=== PATIENT | male | born 1950 | race Caucasian/White ===

== ENCOUNTER → 2018-02-04 08:57 | Outpatient (CLI) | payer MEDICARE, OTHER, SELFPAY ==
--- NOTE | 2018-02-04 | DI.ECHO.S_ITS ---
[facility]---------+ [facility] +---------+ : : [address] : : : : [id number] : : : : Phone: [phone]---------+ Echocardiogram Report + + :Name: KENDY ORTIZ Study Date: 02/04/2018 Height: 73 in : :[facility] Exam Location: [facility] Weight: 208 lb : : Gender: Male BSA: 2.2 m2 : :: 1950 Age: 67 yrs BP: 155/80 mmHg: :Reason For Study: Aortic valve stenosis : :Ordering Physician: Kate Ramos : :Nita Performed By: Roseanna Page : + + Interpretation Summary 1) Normal left ventricular thickness, size, wall motion, and systolic function (EF 60-65%). 2) Normal right ventricular size and function. 3) Moderate to severe aortic stenosis (valve area 0.9cm2, mean gradient 30mmHg, severity ratio 0.25). 4) Compared to the echo done 08/05/2017, aortic stenosis remains in the moderate to severe range. Procedure: A two-dimensional transthoracic echocardiogram with color flow and Doppler was performed. The study quality was technically adequate. Comparison is made with the echocardiogram of 08/05/17. The patient was in normal sinus rhythm during the exam. The patient had occasional PVCs during the exam. Left Ventricle: The left ventricle is normal in size, wall thickness, and systolic function without any focal wall motion abnormalities. Proximal septal thickening is noted. The ejection fraction is estimated to be 60-65%. Assessment of diastolic parameters indicates a relaxation abnormality of the left ventricle, consistent with normal filling pressures. Right Ventricle: The right ventricle is normal in size and function. Atria: Both atria are normal in size. There is no Doppler evidence for an interatrial shunt. Mitral Valve: The mitral valve leaflets appear thickened, but open well. There is mild mitral annular calcification. There is trace mitral regurgitation. Aortic Valve: The aortic valve is moderately calcified. The peak aortic velocity is 3.7 m/sec. The peak aortic velocity on the previous exam was 3.7 m/sec. The aortic valve mean gradient is 30.2 mmHg. The calculated aortic valve area is 0.90 cm2. There is moderate to severe aortic stenosis. Compared to the prior echo study, there has been no change in the severity of aortic stenosis. There is mild aortic regurgitation. Tricuspid Valve: The tricuspid valve is normal in structure and function. There is a trace or physiologic amount of tricuspid regurgitation. Pulmonary artery pressures cannot be estimated because of the lack of a measurable TR jet velocity. Pulmonic Valve: The pulmonic valve is not well visualized. There is a trace or physiologic amount of pulmonic regurgitation. Great Vessels: The aortic root is normal size. The ascending aorta is mildly enlarged. The pulmonary artery is not well visualized, but is probably normal size. The IVC is of normal diameter and collapses greater than 50% with a sniff. This suggests a low right atrial pressure of 3 mm Hg. Pericardium/ Pleura There is no pericardial effusion. There is no pleural effusion. MMode/2D Measurements & Calculations LVIDd: 4.1 cm LVOT diam: 2.1 cm LVIDs: 3.1 cm Ao root diam: 3.8 cm FS: 24.0 % asc Aorta Diam: 3.6 cm EPSS: 0.64 cm IVSd: 0.94 cm LVPWd: 0.92 cm LV villalba. diameter/BSA (cm/m^2): 1.9 LV sys. diameter/BSA (cm/m^2): 1.4 LA A2 area: 19.7 cm2 RA long axis: 5.2 cm LA A4 area: 21.0 cm2 RA area: 16.0 cm2 LA length (vol): 6.1 cm RA vol: 41.7 ml LA vol: 57.6 ml RA : 19.1 ml/m2 LA vol index: 26.3 ml/m2 RVD1 (basal): 3.7 cm Doppler Measurements & Calculations Ao V2 max: 371.4 cm/sec LVOT Max Ran: 91.0 cm/sec Ao V2 mean: 259.3 cm/sec LV V1 max P.3 mmHg Ao max P.2 mmHg LV V1 VTI: 19.6 cm Ao mean P.2 mmHg DANIELA(I,D): 0.90 cm2 Ao V2 VTI: 77.7 cm DANIELA(V,D): 0.88 cm2 sev ratio: 0.25 DANIELA indexed to BSA (cm^2/m^2): 0.41 MV E max ran: 63.1 cm/sec PA V2 max: 72.3 cm/sec MV A max ran: 87.1 cm/sec PA V2 mean: 50.3 cm/sec MV E/A: 0.72 PA mean P.1 mmHg Med Peak E' Ran: 3.1 cm/sec PA Accel Time: 0.14 sec E/E' med: 20.4 Lat Peak E' Ran: 7.8 cm/sec E/E' lat: 8.0 E/e' average: 14.2 MV dec time: 0.23 sec MV P1/2t: 66.9 msec MV P1/2t max ran: 63.2 cm/sec MVA(P1/2t): 3.3 cm2 Reading Physician:11:16 AM
== END ==
PROVIDERS: Family Provider Internal Medicine; PCP Internal Medicine; Visit Provider Internal Medicine Cardiovascular Disease
DX: I35.0 Nonrheumatic aortic (valve) stenosis (principal)
CPT/HCPCS: 93306

== ENCOUNTER → 2018-02-19 09:00 | Outpatient (CLI) | payer MEDICARE, OTHER, SELFPAY ==
--- NOTE | 2018-02-19 | DI.US.S_ITS ---
PROCEDURE: US RETROPERITONEAL COMP INDICATIONS: ABDOMINAL AORTIC ANEURYSM TECHNIQUE: Real-time scanning was performed of the retroperitoneal organs, with image documentation. COMPARISON: None. FINDINGS: Aorta: Distal abdominal aortic aneurysm is present measuring up to 4.1 cm in maximal AP diameter. The iliac arteries are normal caliber. Iliac arteries: Proximal common iliac arteries are normal in caliber at 2.5 cm or less. IMPRESSION: 4.1 cm distal abdominal aortic aneurysm. Dictated by: Jarrod Marie [facility] Interpreted: Hedy Neri MD on 02/19/2018 at 10:01 Approved by: Hedy Neri MD, PhD on 02/19/2018 at 12:09
== END ==
PROVIDERS: Family Provider Internal Medicine; PCP Internal Medicine; Visit Provider Internal Medicine Cardiovascular Disease
DX: I71.4 Abdominal aortic aneurysm, without rupture (principal)
CPT/HCPCS: 76770

== ENCOUNTER → 2019-01-26 15:18 | Outpatient (CLI) | payer MEDICARE, OTHER, SELFPAY ==
[2019-01-26 16:05] LABS: BUN Creatinine Ratio 15.5 (6-22); Blood Urea Nitrogen 17 mg/dL (9-20); Estimated Glomerular Filt Rate > 60.0 mL/min (>60)
== END ==
PROVIDERS: PCP Internal Medicine; Visit Provider Surgery
DX: K40.90 Unilateral inguinal hernia, without obstruction or gangrene, not specified as recurrent (principal)
CPT/HCPCS: 36415; 82565; 84520

== ENCOUNTER → 2019-01-29 10:48 | Outpatient (CLI) | payer MEDICARE, OTHER, SELFPAY ==
--- NOTE | 2019-01-29 10:51 | DI.CT.S_ITS ---
PROCEDURE: CT ABDOMEN PELVIS W CON INDICATIONS: recurrent right inguinal hernia TECHNIQUE: After the administration of oral and intravenous contrast, 5 mm thick sections acquired from the diaphragms to the symphysis. 5 mm thick coronal and sagittal reformats were performed. For radiation dose reduction, the following was used: automated exposure control, adjustment of mA and/or kV according to patient size. COMPARISON: [facility], , US ABD AORTA ANEURYSM SCREEN, 01/20/2019, 14:14. FINDINGS: Image quality: Excellent. ABDOMEN: Lung bases: Lung bases are clear. Heart size is normal. Coronary artery calcifications. Solid organs: Liver is normal in size and enhancement. Gallbladder is unremarkable. Biliary system is non-dilated. Pancreas enhances normally. Spleen is normal in size and enhancement. No adrenal nodules. Kidneys are normal in size and enhancement, without hydronephrosis. Peritoneum and bowel: Stomach, small bowel, and colon loops are normal in caliber and wall thickness. No free fluid or air. Extensive sigmoid diverticulosis without evidence of diverticulitis. Nodes and vessels: No retroperitoneal or mesenteric adenopathy. There is an infrarenal abdominal aortic aneurysm which measures approximately 5.1 cm in maximum diameter. It is not possible to take an accurate transverse diameter measurement secondary to tortuosity. This would be an overestimation. There is moderate to large thrombus. There is a wide neck between the lowest renal artery and the aneurysm through the aneurysm and its at the aortic bifurcation. This aneurysm has excellent anatomical appearance for potential endovascular repair. The SMA, celiac, bilateral renal arteries, and DELPHINE are patent. The common iliacs and internal iliacs and common femorals are widely patent Miscellaneous: No ventral hernias. PELVIS: Genitourinary: Bladder wall thickness is normal. Miscellaneous: No inguinal hernias or adenopathy. No evidence of recurrent inguinal hernia. Bones: No suspicious bony lesions. No vertebral body compression fractures. IMPRESSION: 1. Infrarenal abdominal aortic aneurysm measuring 5.1 cm. This is of surgical size. The aneurysm has suitable anatomy for endovascular repair. Recommend referral to a vascular surgeon who performs endovenous aortic aneurysm treatment. 2. No evidence of recurrent inguinal hernia. 3. Extensive sigmoid diverticulosis without evidence of diverticulitis. Dictated by: Anup Weiss M.D. on 01/29/2019 at 16:24 Approved by: Anup Weiss M.D. on 01/29/2019 at 16:30
== END ==
PROVIDERS: PCP Internal Medicine; Visit Provider Surgery
DX: K40.91 Unilateral inguinal hernia, without obstruction or gangrene, recurrent (principal); I71.4 Abdominal aortic aneurysm, without rupture; K57.30 Diverticulosis of large intestine without perforation or abscess without bleeding
CPT/HCPCS: 74177; Q9967

== ENCOUNTER → 2019-02-08 13:17 | Outpatient (CLI) | payer MEDICARE, OTHER, SELFPAY ==
--- NOTE | 2019-02-08 | DI.ECHO.S_ITS ---
[facility]---------+ [facility] +---------+ : : [address] : [address] [address] : : : : [id number] : : : : Phone: [phone]---------+ Echocardiogram Report + + :Name: KENDY ORTIZ Study Date: 02/08/2019 Height: 73 in : :[facility] Weight: 216 lb : : Gender: Male BSA: 2.2 m2 : :: 1950 Age: 68 yrs BP: 130/82 mmHg: :Reason For Study: Aortic valve stenosis : : Performed By: Kylie Calderon : :Referring: FRANCO MOYA : + + Interpretation Summary 1) Normal left ventricular thickness, size, wall motion, and systolic function (EF 60-65%). 2) Grossly, normal right ventricular size and function. 3) Severe aortic stenosis (valve area 0.6cm2, mean gradient 44mmHg, severity ratio 0.2). 4) There is mild to moderate aortic regurgitation. 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 6) Compared to the Echo done 02/04/2018, aortic stenosis has progressed from moderate-severe to severe on this study. Procedure: A two-dimensional transthoracic echocardiogram with color flow and Doppler was performed. The study quality was technically adequate. Comparison is made with the echocardiogram of 02-04-18. The patient was in normal sinus rhythm during the exam. Left Ventricle: The left ventricle is normal in size, wall thickness, and systolic function without any focal wall motion abnormalities. The ejection fraction is estimated to be 60-65%. Diastolic parameters suggest a relaxation abnormality of the left ventricle, consistent with probable normal filling pressures. Right Ventricle: The right ventricle grossly appears normal in size with probable normal systolic function. Atria: The left atrial size is normal. Right atrial size is normal. The interatrial septum is intact with no evidence for an atrial septal defect. Mitral Valve: The mitral valve leaflets appear mildly thickened, but open well. There is mild to moderate mitral annular calcification. There is no mitral regurgitation noted. Aortic Valve: The calculated aortic valve area is 0.6 cm2. The aortic valve area indexed to the BSA is 0.28 . The peak aortic velocity is 4.4 m/sec. The peak aortic velocity on the previous exam was 3.7 m/sec. The aortic valve mean gradient is 44 mmHg. Severity ratio is 0.20. There is mild to moderate aortic regurgitation. Tricuspid Valve: The tricuspid valve is normal in structure and function. There is a trace or physiologic amount of tricuspid regurgitation. The right ventricular systolic pressure is estimated to be at least 27 mmHg based on an estimated right atrial pressure of 3 mm Hg. Pulmonic Valve: The pulmonic valve is not well seen, but is grossly normal. There is trace pulmonic regurgitation. Great Vessels: The aortic root is normal size. The ascending aorta is at the upper limits of normal in size. The aortic arch is normal in size. A 4.6 cm AAA with residual thrombus is noted. The IVC is of normal diameter and collapses greater than 50% with a sniff. This suggests a low right atrial pressure of 3 mm Hg. Pericardium/ Pleura There is no pericardial effusion. There is no pleural effusion. MMode/2D Measurements & Calculations LVIDd: 3.6 cm LVOT diam: 2.0 cm LVIDs: 2.0 cm Ao root diam: 3.3 cm FS: 44.7 % Aortic Jxn: 2.6 cm EPSS: 0.68 cm asc Aorta Diam: 3.6 cm IVSd: 0.88 cm Ao Arch Diam (Prox Trans): 2.9 cm LVPWd: 0.67 cm LV villalba. diameter/BSA (cm/m^2): 1.6 LV sys. diameter/BSA (cm/m^2): 0.89 LA dimension: 3.2 cm RA long axis: 4.5 cm LA A2 area: 18.9 cm2 RA area: 12.3 cm2 LA A4 area: 17.0 cm2 RA vol: 28.4 ml LA length (vol): 4.8 cm RA : 12.8 ml/m2 LA vol: 57.1 ml IVC diam: 1.5 cm LA vol index: 25.7 ml/m2 RVDd major: 5.4 cm RVD1 (basal): 3.0 cm RVD2 (mid): 2.8 cm Doppler Measurements & Calculations Ao V2 max: 437.0 cm/sec LVOT Max Ran: 80.1 cm/sec Ao V2 mean: 311.9 cm/sec LV V1 max P.6 mmHg Ao max P.4 mmHg LV V1 VTI: 20.0 cm Ao mean P.5 mmHg DANIELA(I,D): 0.63 cm2 Ao V2 VTI: 100.3 cm DANIELA(V,D): 0.58 cm2 sev ratio: 0.20 DANIELA indexed to BSA (cm^2/m^2): 0.28 AI P1/2t: 501.7 msec AI dec slope: 238.8 cm/sec2 MV E max ran: 60.7 cm/sec TR max ran: 246.5 cm/sec MV A max ran: 104.9 cm/sec TR max P.3 mmHg MV E/A: 0.58 PA V2 max: 90.8 cm/sec Med Peak E' Ran: 3.7 cm/sec PA V2 mean: 55.6 cm/sec E/E' med: 16.5 PA mean P.5 mmHg Lat Peak E' Ran: 5.5 cm/sec PA Accel Time: 0.17 sec E/E' lat: 11.1 E/e' average: 13.8 MV dec time: 0.38 sec MV P1/2t: 110.4 msec MV P1/2t max ran: 61.1 cm/sec SV(LVOT): 63.3 ml MVA(P1/2t): 2.0 cm2 Reading Physician:04:19 PM
== END ==
PROVIDERS: PCP Internal Medicine; Referring Provider Surgery; Visit Provider Internal Medicine Cardiovascular Disease
DX: I35.2 Nonrheumatic aortic (valve) stenosis with insufficiency (principal); I71.4 Abdominal aortic aneurysm, without rupture
CPT/HCPCS: 93306

== ENCOUNTER → 2019-08-27 08:05 | Outpatient (CLI) | payer MEDICARE, OTHER, SELFPAY ==
[2019-08-27 09:35] LABS: Add Manual Diff / Slide Review NO; Basophils Absolute Auto 0 /uL (0-100); Basophils Percent Auto 0.4 % (0-2); Eosinophils Absolute Auto 100 /uL (0-450); Eosinophils Percent Auto 1.8 % (2-4); Hematocrit 42.3 % (41-53); Lymphocytes Absolute Auto 2100 /uL (1100-4500); Lymphocytes Percent Auto 27.2 % (25-40); Mean Corpuscular HGB Conc 33.1 % (30-36); Mean Corpuscular Hemoglobin 26.7 PG (26-34); Mean Corpuscular Volume 80.7 fL (80-100); Monocytes Absolute Auto 800 /uL (0-900); Monocytes Percent Auto 11.1 % (3-14); Neutrophils Absolute Auto 4500 /uL (1500-7000); Neutrophils Percent Auto 59.5 % (50-75); Platelet Count 186 X10^3/uL (150-400); Red Blood Cell Count 5.24 X10^6/uL (4.5-5.9); Red Cell Distribution Width 16.3 % (11.6-14.8); White Blood Cell Count 7.6 X10^3/uL (4.5-11.0)
[2019-08-27 09:55] LABS: Blood Urea Nitrogen 20 mg/dL (9-20); Calcium 10.1 mg/dL (8.4-10.2); Carbon Dioxide 28 mmol/L (22-32); Chloride 103 mmol/L (98-107); Cholesterol 130 mg/dL (140-199); Estimated Glomerular Filt Rate > 60.0 mL/min (>60); Glucose 109 mg/dL (80-110); HDL Cholesterol 40 mg/dL (40-60); HEMOLYSIS < 15 (0-50); LDL Cholesterol Calculated 64 mg/dL (<100); Potassium 4.9 mmol/L (3.4-5.1); Sodium 142 mmol/L (137-145); Triglycerides 132 mg/dL (35-150)
== END ==
PROVIDERS: PCP Internal Medicine; Visit Provider Internal Medicine Cardiovascular Disease
DX: E78.5 Hyperlipidemia, unspecified (principal); I35.0 Nonrheumatic aortic (valve) stenosis; D64.9 Anemia, unspecified
CPT/HCPCS: 36415; 80048; 80061; 85025

== ENCOUNTER 2019-09-02 14:00 | Outpatient (RCR) | payer MEDICARE, OTHER, SELFPAY | END 2019-09-13 11:35 | LOC: CAR 14:00 | PROVIDERS: PCP Internal Medicine; Visit Provider Thoracic Surgery (Cardiothoracic Vascular Surgery) | DX: Z95.1 Presence of aortocoronary bypass graft (principal) | CPT/HCPCS: 93798 ==